=== PATIENT | female | born 1955 | race African-American/Black ===

== ENCOUNTER 2020-11-15 11:56 | Inpatient (IN) | payer OTHER ==
[~2020-11-15] VITALS: Ht 170.2 cm; Wt 103.1 kg
--- NOTE | ~2020-11-15 | HC ---
[facility] [place] [address] CONSULTATION Name: CRAIG HUBER Room #: 459-[facility] IN M.R.#: [id number] Admission: 11/15/20 Attend Phys: Dottie Arnold MD Discharge: Date of : 57 Report #: [id number] THIS REPORT FOR: cc: Teodoro Dasilva MD, Christopher B. MD Stephens, Thad A. MD ~ DATE OF SERVICE: 11/16/2020 WOUND CARE CONSULTATION PERSONAL PHYSICIAN: Brandon Dasilva MD CHIEF COMPLAINT: Gluteal and ischial ulcers. HISTORY OF PRESENT ILLNESS: This is a 65-year-old black female who is in a chronic vegetative state, who is brought from a long-term facility secondary to dislodgement of her PEG tube and decreased hemoglobin. The patient is unable to give any history whatsoever. On admission, the patient was noted to have chronic ulcers in her left gluteal and ischial region, which we have been asked to care for. PAST MEDICAL HISTORY: Significant for diabetes, hypertension, hyperlipidemia, obesity, previous CVA with a chronic vegetative state, status post tracheostomy and PEG placement and chronic ulcers in her left gluteal and ischial region. CURRENT MEDICATIONS: Multiple, I reviewed the patient's medication list. DRUG ALLERGIES: None. SOCIAL HISTORY: The patient resides in a long-term care facility in a chronic vegetative state. FAMILY HISTORY AND REVIEW OF SYSTEMS: Unobtainable because of the patient's altered mental status. PHYSICAL EXAMINATION: VITAL SIGNS: Stable. The patient is afebrile. GENERAL: This is an elderly, chronically ill-appearing black female who does not follow command, but seems to moan when we try to move her. HEENT: Normocephalic, atraumatic. Pupils are round. Sclerae are white. Mucous membranes are dry. NECK: Supple with a trach shield in place. HEART: Regular. LUNGS: Slight diminished breath sounds heard throughout. ABDOMEN: Obese, soft, nontender with a PEG tube in place. [facility] [address] [place] [address] CONSULTATION Name: CRAIG HUBER Room #: [address] [place] [address] IN M.R.#: [id number] Admission: 11/15/20 Attend Phys: Dottie Arnold MD Discharge: Date of : 57 Report #: [id number] EXTREMITIES: The patient has contractures. Evaluation of left buttock reveals a stage 3 decubitus ulcer, which is fairly clean and granulating. Evaluation of left ischial region reveals a stage 3 decubitus ulcer, which is clean and granulating. There is no significant tunneling or undermining on either one of these ulcers. Periwound is otherwise intact. Bilateral heels are intact. NEUROLOGIC: The patient is essentially in a chronic vegetative state. IMPRESSION: 1. Stage 3 left gluteal ulcer - chronic. 2. Stage 3 left ischial ulcer - chronic. 3. Generalized debility secondary to chronic vegetative state. PLAN: We will use a barrier cream placed t.i.d. and p.r.n. to the sites. We will put the patient on low air loss mattress and have her turned every 2 hours. We will continue all other current medications at this time. By: [phone] Evans Kim MD /nt
[2020-11-15 11:57] VITALS: BP 177/60
[2020-11-15] MEDS ORDERED: HUMALOG JU100 UNIT/1 SUBQ (12:16)
[2020-11-15] MEDS ORDERED: LEVEMIR100 UNIT/1 SUBQ (12:18)
[2020-11-15] MEDS ORDERED: NORVASC10 MG PO (12:20)
[2020-11-15] MEDS ORDERED: CLONIDINE HCL0.1 M1 PER TUBE (12:23)
[2020-11-15] MEDS ORDERED: NEPRO CARB STE237 ML PER TUBE (12:23)
[2020-11-15] MEDS ORDERED: BUSPIRONE HCL10 MG PER TUBE (12:24)
[2020-11-15] MEDS ORDERED: ACETAMINOP160 MG/51 PER TUBE (12:25)
[2020-11-15] MEDS ORDERED: ROBITUSSIN100 MG/53 PER TUBE (12:26)
[2020-11-15 13:17] LABS: CALCIUM 9.5 mg/dL (8.5-10.1); CREATININE 1.3 mg/dL (0.6-1.0); POTASSIUM 3.7 mmol/L (3.5-5.1)
[2020-11-15 13:18] LABS: HEMOGLOBIN 6.7 gm/dL (12.0-15.0)
[2020-11-15 13:20] LABS: BASOPHILS 0.6 % (0.0-2.0); EOSINOPHILS 4.5 % (0.0-3.0); HEMATOCRIT 21.4 % (37.0-47.0); LYMPHOCYTES 11.2 % (24.0-44.0); MCH 27.3 pg (26.0-34.0); MCHC 31.2 g/dL (28.0-37.0); MCV 87.6 fL (80.0-100.0); POLYS 78.7 % (36.0-66.0); RBC 2.44 mil/uL (4.20-5.00); RDW 17.9 % (10.5-14.5)
[2020-11-15 13:55] LABS: PLATELET COUNT 236 thou/uL (150-400)
[2020-11-15 16:46] LABS: % SATURATION 22 % (20-39); IRON 35 ug/dL (50-170); TIBC 157 ug/dL (250-450)
[2020-11-15 19:48] VITALS: BP 191/63
[2020-11-15 19:50] VITALS: BP 191/63
[2020-11-15 20:37] VITALS: BP 169/70
[2020-11-16] VITALS (7 sets, daily range): BP systolic 152–182; BP diastolic 48–65
--- NOTE | 2020-11-16 05:11 | NUR ---
Pt admitted from ED at 1999. Awake,tracks with eyes but non verbal. VSS. Trach in place connected to suction. PEG tube in place on LUQ,patent. Pt has an open sore on left buttock/sacrum, pictures taken and zguard applied. Max assist with ADLs. Incontinent of B&B.Repositioned as tolorated. NSR on telemetry. 1 unit PRBC just completed transfusing via RUE midline no ADR noted. Resting queitly w/o any distress noted, will continue to monitor pt.
[2020-11-16 06:58] LABS: ABSOLUTE NEUTROPHILS 6.1 thou/uL (1.4-8.2); BASOPHILS 0.5 % (0.0-2.0); EOSINOPHILS 4.7 % (0.0-3.0); HEMOGLOBIN 7.8 gm/dL (12.0-15.0); LYMPHOCYTES 12.2 % (24.0-44.0); MCH 27.3 pg (26.0-34.0); MCHC 31.3 g/dL (28.0-37.0); MONOCYTES 5.8 % (1.0-8.0); PLATELET COUNT 209 thou/uL (150-400); POLYS 76.8 % (36.0-66.0); RBC 2.87 mil/uL (4.20-5.00); RDW 17.3 % (10.5-14.5); WBC 7.9 thou/uL (4.0-11.0)
--- NOTE | 2020-11-16 11:49 | NUR ---
Nutrition: When appropriate, rec resume pt's usual tube feeding of Nepro at 40 mL/hr with 175 mL H20 flush q 4 hrs.
--- NOTE | 2020-11-16 15:57 | NUR ---
Case opened to follow for dc planing. 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 Piece Dyer spoke with her dtr/dpoa Krystal as well as the [facility] liason. Clinical updated faxed to [facility]. They can accept her back when medically stable. Covid neg test today faxed as well. [facility] is faxing a copy of the pt's dpoa for health care. Dtr to f/u with the DON at [facility] regarding communication and care concerns. Pt had peg tube replaced and GI consult. Dtr requested updates and message given to GI [employer]NA[employer] and the unit RN. The pt is in a vegitative state and will need ambulance transport at [facility]. CM role introduced to pt's dtr and support provided. She has not been able to see her mother due to the pandemic. Will ask nursing to clarify if she can visit prior to dc.
[2020-11-16 16:19] LABS: HEMATOCRIT 22.9 % (37.0-47.0); HEMOGLOBIN 7.2 gm/dL (12.0-15.0)
--- NOTE | 2020-11-16 20:07 | NUR ---
Assumed pt care this am, pt is a total care. PEG tube in place patent, tube feedings resumed via blus feeds as per order. Blood sugar checks done , medication given as per emar. Wound care done and seen by wound care team, POC followed with no signs of distress. Trach care done. Spoke to pts daughter, informed on the protocol for visitors and gave an update. VS stable, endorsed to the [facility] nurse.
[2020-11-17 00:41] LABS: HEMATOCRIT 23.9 % (37.0-47.0); HEMOGLOBIN 7.5 gm/dL (12.0-15.0)
[2020-11-17 07:10] VITALS: BP 143/45
--- NOTE | 2020-11-17 07:54 | NUR ---
Assumed pt care at 1900. Awake,moving neck side to side,opens eyes spontaneously,non verbal. Trach/PEG in place and functional. RUE midline w/IVF infusing w/o any problems. Woundcare to Left buttocks/sacrum done w/o any problems. Incontinent of bowels this shift,pt has oliguria. Fall precautions in place,SR on telemetry.
[2020-11-17] MEDS ORDERED: HUMALOG100 UNIT/1 SUBQ (13:09)
--- NOTE | 2020-11-17 13:09 | NUR ---
VAT CONSULTED TO ASSESS PT RIGHT UPPER ARM MIDLINE. PT ADMITTED TO HOSPITAL WITH MIDLINE. CXR SHOWS TIP OVERLIED BRACHIOCEPHALIC VEIN AND RN UNABLE TO FLUSH. THIS RN REMOVED DRESSING AND CLEANED SITE PER HOSPITAL POLICY. ATTEMPTED TO PULL MIDLINE BACK UNTIL ABLE TO FLUSH. NEVER ABLE TO FLUSH, SO REMOVED ML. NEW MIDLINE PLACED IN RIGHT UA, DOCUMENTED. PT TOLERATED WELL.
[2020-11-17] MEDS ORDERED: PREVACID 15 MG15 M4 DISSOLVE (13:11)
[2020-11-17 15:22] VITALS: BP 152/60
--- NOTE | 2020-11-17 16:04 | NUR ---
CARE TEAM INDICATED THAT PT IS MEDICALLY STABLE TO DC BACK TO [facility] THIS DAY. ORDERS WERE FAXED TO FACILITY. IT WAS INDICATED THAT THEY WERE NOT WILLING TO TAKE PT SHE NEEDS TO COME BACK IN 4-[address] ABD. BIBI NOTIFIED PHYSICAN WHO INDICATED THAT WASN'T APPROPRIATE. BIBI SPOKE WITH CM TUB WASH OPERATOR AND SHE CONTACTED FACILITY. THEY ARE ACCEPTING AND WILL MAKE ARRANGEMENTS FOR OP FOLLOW UP. [facility] TRANSPORT ARRANGED FOR 1700. BIBI CALLED TO NOTIFY DTR AND SHE INDICATED THAT SHE WAS NOT SATISFIED WITH [facility]. BIBI NOTIFIED PHYSICIAN THAT DTR WANTED A PHONE CALL. CHART COPY ORDERED. ORDERS FAXED. REPORT TO BE CALLED TO .
[2020-11-17 18:38] VITALS: BP 156/62
--- NOTE | 2020-11-17 20:18 | NUR ---
ASSUMED CARE OF THE PATIENT AT 0715, PATIENT AWAKE, NO RESPONE. CVA WITH VEGATATIVE STATE. TRACH IN PLACE, SUCTIONED X 2. MAGNESIUM CITRATE GIVEN, 2 EXTRA LARGE STOOLS. ZGUARD APPLIED TO BUTTOCKS AND SACRUM. DISCHARGE ORDER IN COMPUTER, PATIENT WILL DISCHARGE BACK TO [facility]. MIDLINE NOT WORKING THIS AM, IV TEAM CALLED, NEW MIDLINE INSERTED. IV FLUIDS GOING AT 80CC/HR. REPORT GIVEN TO AMANDA AT [facility]. FIRE DEPT HEAR TO GET THE PATIENT PER STREGHTER. ALL DISCHARGE APER WORK AND ALL PERSONAL BELOMGIGS SENT WITH THE PATIENT.
== END 2020-11-17 20:00 | DRG 393 ==
LOC: ER 11:56 → 4W 15:06 → EROBS 15:06 → 4W 20:07
PROVIDERS: Emergency Medicine; Nurse Practitioner; ADMIT Hospitalist; ATTEND Hospitalist
PROC: 0DH63UZ Insertion of Feeding Device into Stomach, Percutaneous Approach (ICD-10-PCS; principal; 2020-11-15)
PROC: 30233N1 Transfusion of Nonautologous Red Blood Cells into Peripheral Vein, Percutaneous Approach (ICD-10-PCS; 2020-11-16)
PROC: 05HD33Z Insertion of Infusion Device into Right Cephalic Vein, Percutaneous Approach (ICD-10-PCS; 2020-11-17)
DX: K94.23 Gastrostomy malfunction (principal); L89.323 Pressure ulcer of left buttock, stage 3; L89.223 Pressure ulcer of left hip, stage 3; E43 Unspecified severe protein-calorie malnutrition; J96.90 Respiratory failure, unspecified, unspecified whether with hypoxia or hypercapnia; E87.1 Hypo-osmolality and hyponatremia; E78.5 Hyperlipidemia, unspecified; E66.9 Obesity, unspecified; E78.00 Pure hypercholesterolemia, unspecified; N18.30 Chronic kidney disease, stage 3 unspecified; F41.9 Anxiety disorder, unspecified; Z20.828 Contact with and (suspected) exposure to other viral communicable diseases; I12.9 Hypertensive chronic kidney disease with stage 1 through stage 4 chronic kidney disease, or unspecified chronic kidney disease; E11.22 Type 2 diabetes mellitus with diabetic chronic kidney disease; D64.9 Anemia, unspecified; Z88.2 Allergy status to sulfonamides; Z68.35 Body mass index [BMI] 35.0-35.9, adult; Z86.73 Personal history of transient ischemic attack (TIA), and cerebral infarction without residual deficits; Z88.8 Allergy status to other drugs, medicaments and biological substances; Z68.39 Body mass index [BMI] 39.0-39.9, adult; Z79.899 Other long term (current) drug therapy; Z74.01 Bed confinement status
CPT/HCPCS: 10045

== ENCOUNTER 2021-03-17 08:56 | Emergency (ER) | payer OTHER ==
[~2021-03-17] VITALS: Ht 170.2 cm; Wt 120.7 kg
[~2021-03-17 08:56] MED LIST: ACETAMINOP160 MG/51 PER TUBE; BUSPIRONE HCL10 MG PER TUBE; CLONIDINE HCL0.1 M1 PER TUBE; HUMALOG JU100 UNIT/1 SUBQ; HUMALOG100 UNIT/1 SUBQ; LEVEMIR100 UNIT/1 SUBQ; NEPRO CARB STE237 ML PER TUBE; NORVASC10 MG PO; PREVACID 15 MG15 M4 DISSOLVE; ROBITUSSIN100 MG/53 PER TUBE
[2021-03-17 09:19] LABS: BE(vivo) -5.4 mmol/L (-2 to +3); HCO3 24.6 mmol/L (22.0-26.0); PCO2 VENOUS 80.1 mmHg (41.0-51.0); PO2 VENOUS 66.7 mmHg (35.0-45.0)
[2021-03-17 09:21] LABS: URINE BILIRUBIN NEGATIVE (Negative); URINE BLOOD 2+ (Negative); URINE CLARITY CLOUDY; URINE COLOR YELLOW; URINE GLUCOSE-RANDOM* NEGATIVE (Negative); URINE KETONES NEGATIVE (Negative); URINE NITRITE-REFLEX NEGATIVE (Negative); URINE PROTEIN (DIPSTICK) 3+ (Negative); URINE UROBILINOGEN 0.2 E.U./dl (0.2-1.0)
[2021-03-17 09:22] LABS: URINE LEUKOCYTES-REFLEX 1+ (Negative)
[2021-03-17 09:30] LABS: HEMATOCRIT 24.3 % (37.0-47.0); MCH 29.6 pg (26.0-34.0); MCHC 33.1 g/dL (28.0-37.0); MCV 89.4 fL (80.0-100.0); RBC 2.71 mil/uL (4.20-5.00); RDW 17.1 % (10.5-14.5); WBC 6.1 thou/uL (4.0-11.0)
[2021-03-17 09:38] LABS: ANION GAP 4 mmol/L (7-16); BUN 79 mg/dL (7-18); CALCIUM 10.6 mg/dL (8.5-10.1); CHLORIDE 104 mmol/L (98-107); CO2 28 mmol/L (21-32); CREATININE 1.6 mg/dL (0.6-1.0); GLUCOSE 74 mg/dL (74-106); POTASSIUM 4.2 mmol/L (3.5-5.1); SODIUM 136 mmol/L (136-145)
[2021-03-17 09:48] LABS: CASTS None Seen /LPF (None Seen); CRYSTALS None Seen /LPF (None Seen); SQUAMOUS 4-10 Moderate /LPF (0-3); TRANSITIONAL EPITHEL CELL 0-3 Few /LPF (None Seen); URINE RBC 3-10 Few /HPF (NONE SEEN); YEAST-REFLEX Present (None Seen)
[2021-03-17 09:48] LABS: SGOT 49 U/L (15-37); SGPT 60 U/L (14-59); TOTAL BILIRUBIN 0.2 mg/dL (0.2-1.0); TOTAL PROTEIN 7.4 g/dL (6.4-8.2); TROPONIN-I <0.06 ng/mL (<0.06)
[2021-03-17 09:49] LABS: BACTERIA-REFLEX 1-9 Few /HPF (None Seen)
[2021-03-17] MEDS ORDERED: LEVEMIR100 UNIT/2 SUBQ (09:50)
[2021-03-17] MEDS ORDERED: PROSOURCE NO CA30 ML PER TUBE (09:51)
[2021-03-17] MEDS ORDERED: NORVASC10 MG PER TUBE (09:51)
[2021-03-17] MEDS ORDERED: MIRALAX119 GM PER TUBE (09:55)
--- NOTE | 2021-03-17 14:33 | EKG ---
[address] [address] ELECTROCARDIOGRAM REPORT Name: CRAIG HUBER [id number] Admission: 03/17/21 Attend Phys: Discharge: Date of : 57 Report #: [id number] [facility] ED Test Date: 2021-03-17 Test Time: 09:35:57 Pat Name: CRAIG HUBER Department: Room: Gender: F Regional Sales Coordinator: DIONE : 1955 Requested By: Janet Alford Order Number: [id number] MD: Kurt Leon Measurements Intervals [place] Rate: 33 P: 147 TX: 168 QRS: 77 QRSD: 147 T: 76 QT: 674 QTc: 500 Interpretive Statements Sinus or ectopic atrial bradycardia Nonspecific intraventricular conduction delay No previous ECG available for comparison Electronically Signed On 03-17-2021 14:33:35 CDT by Kurt Leon [email or web address] <ELECTRONICALLY SIGNED> By: Kurt Leon MD, [facility] 03/17/21 1433 0935 0935 Kurt Leon MD, FACC /EPI
[2021-03-17 18:28] VITALS: BP 118/53
== END 2021-03-17 19:04 ==
LOC: ER 08:56
PROVIDERS: Student in an Organized Health Care Education/Training Program
DX: J96.20 Acute and chronic respiratory failure, unspecified whether with hypoxia or hypercapnia (principal); R00.1 Bradycardia, unspecified; I12.9 Hypertensive chronic kidney disease with stage 1 through stage 4 chronic kidney disease, or unspecified chronic kidney disease; E11.22 Type 2 diabetes mellitus with diabetic chronic kidney disease; N18.9 Chronic kidney disease, unspecified; E78.5 Hyperlipidemia, unspecified; E66.9 Obesity, unspecified; Z88.2 Allergy status to sulfonamides; Z79.899 Other long term (current) drug therapy; Z79.4 Long term (current) use of insulin